=== PATIENT | male | born 1955 | race Caucasian/White ===

== ENCOUNTER 2017-12-14 02:12 | Inpatient (IN) | payer BC ==
[2017-12-14] MEDS: ONDANSETRON 4MG/2ML VIAL (J2405) IV (03:10)
[2017-12-14] MEDS: NS 1,000 ML IV (03:11)
[2017-12-14] MEDS: MORPHINE 4 MG/ML 1ML VIAL/SYRINGE (J2270) IV (03:12)
[2017-12-14 03:24] LABS: BASO % 0.2 % (0.0-1.0); EOS % 0.2 % (0.0-3.0); HEMATOCRIT 40.9 % (42.0-52.0); HEMOGLOBIN 13.9 g/dl (13.5-17.5); IMMATURE GRANULOCYTE % 0.4 % (0-3.0); LYMPH # 1.3 10^3/uL (1.5-4.5); MEAN CORPUSCULAR HEMOGLOBIN 31.6 pg (27.0-33.0); MONO # 0.4 10^3/uL (0.0-0.8); MONO % 3.7 % (0.0-5.0); NEUTROPHILS # 8.4 10^3/uL (1.8-7.7); NEUTROPHILS % 82.5 % (36.0-66.0); PLATELET COUNT, AUTOMATED 246 10^3/uL (150-450); RED CELL DISTRIBUTION WIDTH 12.7 % (11.5-14.5); WHITE BLOOD COUNT 10.2 10^3/uL (4.0-10.0)
[2017-12-14 03:52] LABS: ALBUMIN/GLOBULIN RATIO 1.05 (1.00-1.93); ALKALINE PHOSPHATASE 107 U/L (45-117); ALT/SGPT 25 U/L (12-78); ANION GAP 9 MEQ/L (8-16); AST/SGOT 19 U/L (7-37); BILIRUBIN,DIRECT < 0.1 MG/DL (0.0-0.2); BILIRUBIN,TOTAL 0.4 MG/DL (0.2-1.0); BLOOD UREA NITROGEN 23 MG/DL (7-18); CALCIUM LEVEL 8.9 MG/DL (8.8-10.2); CARBON DIOXIDE LEVEL 22 MEQ/L (21-32); CHLORIDE LEVEL 106 MEQ/L (98-107); CREATININE FOR GFR 1.51 MG/DL (0.70-1.30); GLOMERULAR FILTRATION RATE 50.1 (>49); GLUCOSE, FASTING 149 MG/DL (70-100); LIPASE 177 U/L (73-393); POTASSIUM SERUM 4.4 MEQ/L (3.5-5.1); SODIUM LEVEL 137 MEQ/L (136-145); TOTAL PROTEIN 7.8 GM/DL (6.4-8.2)
[2017-12-14 03:53] LABS: LACTIC ACID SEPSIS PROTOCOL 1.7 MMOL/L (0.4-2.0)
[2017-12-14] MEDS ORDERED: LIDOCAINE 2% INJ 100 MG/5 ML SDV (FOR ANES.) As Ordered (05:09)
[2017-12-14] MEDS ORDERED: ROCURONIUM BROMIDE 50 MG/5 ML VIAL As Ordered (05:09)
[2017-12-14] MEDS ORDERED: fentaNYL 250 MCG/5 ML INJECTION (J3010) As Ordered (05:09)
[2017-12-14] MEDS ORDERED: PROPOFOL 200 MG/20 ML VIAL As Ordered (05:09)
[2017-12-14] MEDS ORDERED: MIDAZOLAM INJ 2 MG/2 ML VIAL (J2250) As Ordered (05:10)
[2017-12-14] MEDS ORDERED: SUCCINYLCHOLINE 100 MG/5 ML SYRINGE (J0330) As Ordered (05:14)
[2017-12-14] MEDS ORDERED: dexameTHASONE 4 MG/ML 1ML VIAL (J1100) As Ordered (05:39)
[2017-12-14] MEDS ORDERED: PHENYLephrine HCL 500 MCG/5 ML (100MCG/ML) SYRINGE (J2370) As Ordered (05:40)
[2017-12-14] MEDS ORDERED: ePHEDrine SULFATE 25 MG/5 ML(5MG/ML) SYRINGE As Ordered (05:40)
[2017-12-14] MEDS ORDERED: ONDANSETRON 4MG/2ML VIAL (J2405) As Ordered (05:48)
[2017-12-14] MEDS ORDERED: KETOROLAC 60 MG/2 ML VIAL (J1885) As Ordered (05:48)
[2017-12-14] MEDS: BUPIVACAINE HCL 0.25% 30 ML VIAL As Ordered ×2 (05:48→05:59)
[2017-12-14] MEDS ORDERED: NEOSTIGMINE 10 MG/10 ML VIAL (J2710) As Ordered (05:49)
[2017-12-14] MEDS ORDERED: GLYCOPYRROLATE INJ 0.2 MG/ML 2 ML VIAL As Ordered ×2 (05:49)
[2017-12-14] MEDS: BUPIVACAINE/EPIN 0.25% 30 ML VIAL As Ordered (06:00)
[2017-12-14] MEDS: BUPIVACAINE LIPOSOME/PF 1.3% 20 ML VIAL (13.3MG/ML)(EXPAREL) As Ordered (07:03)
[2017-12-14] MEDS ORDERED: NS 1,000 ML IV (07:12)
[2017-12-14] MEDS ORDERED: KETOROLAC 30 MG/ML VIAL (J1885) IV (07:15)
[2017-12-14] MEDS ORDERED: METOCLOPRAMIDE INJ 10MG/2ML VIAL (J2765) IV ×2 (07:15→07:45)
[2017-12-14] MEDS ORDERED: diphenhydrAMINE INJ 50MG/ML VIAL (J1200) IV (07:15)
[2017-12-14] MEDS ORDERED: ONDANSETRON 4MG/2ML VIAL (J2405) IV ×3 (07:15→07:45)
[2017-12-14] MEDS ORDERED: NALOXONE INJ 0.4 MG/1 ML VIAL (J2310) IV (07:15)
[2017-12-14] MEDS ORDERED: EPIDURAL/PCA KEYS XX (07:15)
[2017-12-14] MEDS ORDERED: PROMETHAZINE INJ 25 MG/ML VIAL (J2550) IV (07:15)
[2017-12-14] MEDS ORDERED: NALBUPHINE HCL 10 MG/ML AMP (J2300) IV (07:15)
[2017-12-14] MEDS: LR 1,000 ML IV (07:20)
[2017-12-14 07:26] LABS: BEDSIDE GLUCOSE 128 MG/DL (80-115)
[2017-12-14] MEDS ORDERED: PERCOCET 5MG/325MG TAB PO (07:45)
[2017-12-14] MEDS ORDERED: fentaNYL 100 MCG/2 ML INJECTION (J3010) IV (07:45)
[2017-12-14] MEDS ORDERED: MORPHINE 1MG/ML IN 0.9% NACL 100ML IV BAG As Ordered ×2 (07:56→08:27)
[2017-12-14] MEDS: MORPHINE 1MG/ML IN 0.9% NACL 100ML IV BAG IV (08:14)
[2017-12-14] MEDS: PIPERACILLIN/TAZOBACTAM SOD 3.375 GM in D5W MINI-BAG PLUS 50 ML IV ×3 (10:12→21:50)
[2017-12-14] MEDS: PANTOPRAZOLE 40MG INJ (PROTONIX) (C9113) IV (10:13)
[2017-12-14] MEDS: D5W/LR 1,000 ML IV ×3 (11:30→23:12)
[2017-12-14 11:46] LABS: BEDSIDE GLUCOSE 201 MG/DL (80-115)
[2017-12-14] MEDS: HumaLOG INSULIN (NovoLOG) PER UNIT SC ×3 (12:31→23:43)
[2017-12-14 17:35] LABS: BEDSIDE GLUCOSE 174 MG/DL (80-115)
[2017-12-14] MEDS: LISINOPRIL 10 MG TAB PO ×2 (17:50→21:50)
[2017-12-14] MEDS: PROPRANOLOL 20 MG TAB PO (17:51)
[2017-12-14 23:44] LABS: BEDSIDE GLUCOSE 89 MG/DL (80-115)
[2017-12-15] MEDS: PIPERACILLIN/TAZOBACTAM SOD 3.375 GM in D5W MINI-BAG PLUS 50 ML IV ×4 (04:31→22:39)
[2017-12-15 05:47] LABS: BEDSIDE GLUCOSE 128 MG/DL (80-115)
[2017-12-15] MEDS: HumaLOG INSULIN (NovoLOG) PER UNIT SC ×4 (06:21→21:00)
[2017-12-15 07:10] LABS: HEMATOCRIT 33.3 % (42.0-52.0); MEAN CORPUSCULAR HEMOGLOBIN 32.2 pg (27.0-33.0); MEAN CORPUSCULAR HGB CONC 33.9 g/dl (32.0-36.5); MEAN CORPUSCULAR VOLUME 94.9 fl (80.0-96.0); PLATELET COUNT, AUTOMATED 197 10^3/uL (150-450); RED BLOOD COUNT 3.51 10^6/uL (4.30-6.10); RED CELL DISTRIBUTION WIDTH 13.3 % (11.5-14.5); WHITE BLOOD COUNT 7.8 10^3/uL (4.0-10.0)
[2017-12-15 07:25] LABS: HEMOGLOBIN 11.3 g/dl (13.5-17.5)
[2017-12-15 07:29] LABS: ANION GAP 6 MEQ/L (8-16); BLOOD UREA NITROGEN 20 MG/DL (7-18); CALCIUM LEVEL 8.2 MG/DL (8.8-10.2); CARBON DIOXIDE LEVEL 27 MEQ/L (21-32); CHLORIDE LEVEL 108 MEQ/L (98-107); GLOMERULAR FILTRATION RATE 46.9 (>49); GLUCOSE, FASTING 106 MG/DL (70-100); POTASSIUM SERUM 4.4 MEQ/L (3.5-5.1); SODIUM LEVEL 141 MEQ/L (136-145)
[2017-12-15] MEDS: PANTOPRAZOLE 40MG INJ (PROTONIX) (C9113) IV (09:00)
[2017-12-15] MEDS: PROPRANOLOL 20 MG TAB PO (09:09)
[2017-12-15] MEDS: LISINOPRIL 10 MG TAB PO (09:10)
[2017-12-15] MEDS ORDERED: IBUPROFEN 800 MG TAB PO (09:15)
[2017-12-15] MEDS ORDERED: NORCO, ANEXSIA 5/325MG TABLET (HYDROcodone/ACETAMINOPHEN) PO (09:15)
[2017-12-15] MEDS ORDERED: HumaLOG INSULIN (NovoLOG) PER UNIT SC (12:00)
[2017-12-15 12:10] LABS: BEDSIDE GLUCOSE 125 MG/DL (80-115)
[2017-12-15] MEDS: ACETAMINOPHEN 500 MG TAB PO (15:49)
[2017-12-15 16:34] LABS: BEDSIDE GLUCOSE 123 MG/DL (80-115)
[2017-12-15 21:35] LABS: BEDSIDE GLUCOSE 175 MG/DL (80-115)
[2017-12-16] MEDS: PIPERACILLIN/TAZOBACTAM SOD 3.375 GM in D5W MINI-BAG PLUS 50 ML IV ×2 (05:23→09:42)
[2017-12-16 07:23] LABS: HEMATOCRIT 33.8 % (42.0-52.0); HEMOGLOBIN 11.3 g/dl (13.5-17.5); MEAN CORPUSCULAR HEMOGLOBIN 31.7 pg (27.0-33.0); MEAN CORPUSCULAR HGB CONC 33.4 g/dl (32.0-36.5); MEAN CORPUSCULAR VOLUME 94.9 fl (80.0-96.0); PLATELET COUNT, AUTOMATED 202 10^3/uL (150-450); RED BLOOD COUNT 3.56 10^6/uL (4.30-6.10); RED CELL DISTRIBUTION WIDTH 13.1 % (11.5-14.5); WHITE BLOOD COUNT 8.1 10^3/uL (4.0-10.0)
[2017-12-16] MEDS: HumaLOG INSULIN (NovoLOG) PER UNIT SC (07:30)
[2017-12-16 07:32] LABS: ANION GAP 9 MEQ/L (8-16); BLOOD UREA NITROGEN 22 MG/DL (7-18); CALCIUM LEVEL 8.5 MG/DL (8.8-10.2); CARBON DIOXIDE LEVEL 24 MEQ/L (21-32); CHLORIDE LEVEL 106 MEQ/L (98-107); CREATININE FOR GFR 1.72 MG/DL (0.70-1.30); GLOMERULAR FILTRATION RATE 43.1 (>49); GLUCOSE, FASTING 130 MG/DL (70-100); POTASSIUM SERUM 4.2 MEQ/L (3.5-5.1); SODIUM LEVEL 139 MEQ/L (136-145)
[2017-12-16] MEDS: PANTOPRAZOLE 40MG INJ (PROTONIX) (C9113) IV (08:00)
[2017-12-16] MEDS: PROPRANOLOL 20 MG TAB PO (08:05)
[2017-12-16] MEDS: LISINOPRIL 20 MG TAB PO (08:05)
[2017-12-16] MEDS: ACETAMINOPHEN 500 MG TAB PO (11:30)
== END 2017-12-16 11:45 | disposition home or self-care (01) | DRG 221 ==
LOC: M ED 02:12 → M SDC 04:22 → M ED INP 07:12 → M PED 08:56
PROC: 0DB80ZZ Excision of Small Intestine, Open Approach (ICD-10-PCS; principal; 2017-12-14 04:41)
DX: K42.0 Umbilical hernia with obstruction, without gangrene (principal); E11.9 Type 2 diabetes mellitus without complications; I10 Essential (primary) hypertension; E78.00 Pure hypercholesterolemia, unspecified; Z79.82 Long term (current) use of aspirin; Z79.84 Long term (current) use of oral hypoglycemic drugs; Z79.899 Other long term (current) drug therapy